=== PATIENT | male | born 1945 | race Hispanic/Latino ===

== ENCOUNTER → 2018-10-10 | Outpatient (CLI) | payer MEDICARE ==
[~2018-10-10] MED LIST: LIDOCAINE HCL 1% LOCAL INJ 20 ML VIAL ONE
[2018-10-10 09:06] LABS: INR 0.85; PROTHROMBIN TIME 12.1 seconds (11.9-14.5)
[2018-10-10 09:07] LABS: PARTIAL THROMBOPLASTIN TIME 23.5 seconds (23.8-35.5)
[2018-10-10 12:02] LABS: APPEARANCE,CSF CLEAR (CLEAR); COLOR,CSF COLORLESS (COLORLESS); TUBE NUMBER 1
[2018-10-10 12:03] LABS: WHITE BLOOD CELL,CSF 0 cells/uL (0-5)
[2018-10-10 12:36] LABS: WHITE BLOOD CELL,CSF 4 cells/uL (0-5)
[2018-10-10 12:37] LABS: APPEARANCE,CSF BLOODY (CLEAR); COLOR,CSF RED (COLORLESS); TUBE NUMBER 4
[2018-10-10 12:41] LABS: EOSINOPHILS,CSF 1 % (0-0); LYMPHOCYTES,CSF 38 % (40-80); MONOCYTES,CSF 15 %; NEUTROPHILS,CSF 46 % (0-6)
[2018-10-10 12:59] LABS: LEPTOMENINGEAL,CSF 0 %
[2018-10-10 13:38] LABS: TOTAL PROTEIN,CSF 94.1 mg/dL (15-40)
--- NOTE | 2018-10-10 14:36 | Diagnostic Imaging Report ---
PROCEDURE: Lumbar puncture Procedural Personnel Attending physician(s): Issac Dai MD Fellow physician(s): None Resident physician(s): None Advanced practice provider(s): None Pre-procedure diagnosis: Hydrocephalus Post-procedure diagnosis: Same Indication: Reported history of normal pressure hydrocephalus, Parkinson's disease Additional clinical history: None Complications: No immediate complications. IMPRESSION: Fluoroscopically guided lumbar puncture. Opening pressure of 5 mmHg. Fluid removed and sent for further analysis. PROCEDURE SUMMARY: - Fluoroscopically guided lumbar puncture at L3-4. - Opening pressure measured at 5 mmHg PROCEDURE DETAILS: Pre-procedure Consent: Informed consent for the procedure including risks, benefits and alternatives was obtained and time-out was performed prior to the procedure. Preparation: The site was prepared and draped using maximal sterile barrier technique including cutaneous antisepsis. Anesthesia/sedation Level of anesthesia/sedation: Local 1% lidocaine Lumbar Puncture Preforming Machine Operator images were obtained. Under image guidance and via a translaminar approach, a needle was advanced to the thecal space. Opening pressure was measured and CSF was obtained for further analysis. Target level: L performed Radiation Dose Fluoroscopy time (minutes): 0.4 Reference air kerma (mGy): 7.35 Additional Details Additional description of procedure: None Equipment details: None Specimens removed: CSF Estimated blood loss (mL): Less than 10 Attestation Signer name: Issac Dai MD I attest that I was present for the entire procedure. I reviewed the stored images and agree with the report as written. Signed by: Issac Dai MD on 10/10/2018 2:32 PM
[2018-10-20 12:10] LABS: IGG/ALB RATIO CSF 0.11 (0.00-0.25)
== END ==
LOC: DX 08:03
PROVIDERS: ATTEND Psychiatry & Neurology Neurology
DX: G91.2 (Idiopathic) normal pressure hydrocephalus (principal)
CPT/HCPCS: 36415; 62270; 77003; 82945; 84157; 85049; 85610; 85730; 87070; 87205; 88112; 89051; J2001; 82040; 82784; 83873; 83916